=== PATIENT | female | born 1980 | race Caucasian/White ===

== ENCOUNTER 2016-11-05 20:07 | Emergency (ER) | payer SELFPAY ==
[~2016-11-05] VITALS: Ht 157.5 cm; Wt 146.5 kg
[2016-11-05 21:05] VITALS: BP 120/59
== END 2016-11-05 21:05 | disposition home or self-care (01) ==
LOC: ED 20:07
DX: S61.412A Laceration without foreign body of left hand, initial encounter (principal); I10 Essential (primary) hypertension; E11.9 Type 2 diabetes mellitus without complications; Z79.84 Long term (current) use of oral hypoglycemic drugs; W26.0XXA Contact with knife, initial encounter; Y93.89 Activity, other specified; Y99.8 Other external cause status; Y92.89 Other specified places as the place of occurrence of the external cause
CPT/HCPCS: J2001

== ENCOUNTER 2016-11-12 22:25 | Emergency (ER) | payer SELFPAY ==
[2016-11-12 23:10] VITALS: BP 127/82
== END 2016-11-12 23:10 | disposition home or self-care (01) ==
LOC: ED 22:25
DX: S61.412D Laceration without foreign body of left hand, subsequent encounter (principal); I10 Essential (primary) hypertension; E11.9 Type 2 diabetes mellitus without complications; Z79.84 Long term (current) use of oral hypoglycemic drugs; X58.XXXD Exposure to other specified factors, subsequent encounter; Y99.8 Other external cause status; Y92.89 Other specified places as the place of occurrence of the external cause